=== PATIENT | male | born 2000 | race African-American/Black ===

== ENCOUNTER 2022-04-23 12:05 | Emergency (ER) | payer BC ==
[~2022-04-23] VITALS: Ht 172.7 cm; Wt 57.0 kg
[2022-04-23 12:12] VITALS: BP 114/63
[2022-04-23] MEDS ORDERED: ONDANSETRON 4MG ODT PO ONE (16:15)
== END 2022-04-23 18:07 | disposition home or self-care (01) ==
LOC: ER 12:05
DX: R11.2 Nausea with vomiting, unspecified (principal); Z20.822 Contact with and (suspected) exposure to COVID-19
CPT/HCPCS: 71045; 87426; 87804; 99284; C9803; Q0162